=== PATIENT | female | born 1935 | race Caucasian/White ===

== ENCOUNTER 2021-11-25 16:40 | Emergency (ER) | payer MEDICARE, BC ==
[2021-11-25 17:19] VITALS: BP 199/78; PULSE 77; RESP 18; TEMP 98
--- NOTE | 2021-11-25 18:05 | ED ---
General Adult HPI - General Chief complaint: Upper Respiratory Infection Stated complaint: Covid+,Wants antibody Time Seen by Provider: 11/25/21 17:46 Source: patient, Caregiver Mode of arrival: ambulatory Limitations: altered mental status - History of Present Illness Initial comments: Dictation was produced using [employer] dictation software. please excuse any grammatical, word or spelling errors. Chief Complaint: 86-year-old female presents emergency Department requesting monoclonal antibodies History of Present Illness: Patient is a 86-year-old demented female. She is a resident at [facility]. She has a history of dementia. She allegedly tested positive for cold mid within the last 24 hours. She was seen by [facility] home staff to be more lethargic than usual. Patient is vaccinated for Covid. She presents with staff member confirms patient's symptomatology was less than 10 days. Patient has no complaints. She denies any nasal congestion, chest pain or shortness of breath. She was brought to the emergency department for monoclonal antibody infusion. The ROS documented in this emergency department record has been reviewed and confirmed by me. Those systems with pertinent positive or negative responses have been documented in the HPI. All other systems are other negative and/or noncontributory. PHYSICAL EXAM: General Impression: Alert and oriented x3, not in acute distress HEENT: Normocephalic atraumatic, extra-ocular movements intact, pupils equal and reactive to light bilaterally, mucous membranes moist. Cardiovascular: Heart regular rate and rhythm Chest: Able to complete full sentences, no retractions, no tachypnea Abdomen: abdomen soft, non-tender, non-distended, no organomegaly Musculoskeletal: Pulses present and equal in all extremities, no peripheral edema Motor: no focal deficits noted Neurological: CN II-XII grossly intact, no focal motor or sensory deficits noted Skin: Intact with no visualized rashes Psych: Normal affect and mood ED course: 86-year-old well-appearing female past medical history of dementia brought in by [place] staff for monoclonal antibody infusion. She tested positive for COVID-19. She is allegedly been symptomatically for 2 days. Vital signs upon arrival are within acceptable limits. Examination is benign. positive result was confirmed with in-hospital test. Patient receive on-call and by infusion and observed in emergency department for one hour. Patient tolerated the infusion well. Patient be discharged. - Related Data Allergies Allergy/AdvReac Type Severity Reaction Status Date / Time No Known Allergies Allergy Verified 11/25/21 18:05 Review of Systems ROS Statement: Those systems with pertinent positive or pertinent negative responses have been documented in the HPI. ROS Other: All systems not noted in ROS Statement are negative. Past Medical History Past Medical History: Heart Failure, Dementia, GERD/Reflux, Hyperlipidemia, Hypertension, Seizure Disorder History of Any Multi-Drug Resistant Organisms: None Reported Past Surgical History: Unable to Obtain Past Psychological History: No Psychological Hx Reported Smoking Status: Never smoker Past Alcohol Use History: None Reported Past Drug Use History: None Reported General Exam Limitations: altered mental status Course Vital Signs 11/25/21 11/25/21 17:11 18:11 Temperature 98 F Pulse Rate 77 Respiratory 18 18 Rate Blood Pressure 199/78 O2 Sat by Pulse 97 Oximetry Medical Decision Making - Lab Data Lab Results 11/25/21 Range/Units 18:10 Coronavirus (PCR) Detected A (Not Detectd) Disposition Clinical Impression: COVID-19 Disposition: HOME SELF-CARE Condition: Good Instructions (If sedation given, give patient instructions): Coronavirus Disease 2019 (COVID-19) Is patient prescribed a controlled substance at d/c from ED?: No Referrals: Terrell Louie MD [Primary Care Provider] - 1-2 days
[2021-11-25] MEDS ORDERED: SODIUM CHLORIDE 0.9% 50 ML IVPB ONE (19:00)
[2021-11-25] MEDS ORDERED: BAMLANIVIMAB (EUA) 700 MG, ETESEVIMAB (EUA) 1,400 MG in SODIUM CHLORIDE 0.9% 100 ML IVPB ONE (19:30)
== END 2021-11-25 21:02 | disposition home or self-care (01) ==
LOC: EC 16:40
DX: U07.1 COVID-19 (principal); I11.0 Hypertensive heart disease with heart failure; I50.9 Heart failure, unspecified
CPT/HCPCS: 87635; 99283; 96360; J3490